=== PATIENT | female | born 1990 | race Hispanic/Latino ===

== ENCOUNTER → 2018-08-24 | Outpatient (CLI) | payer MEDICAID | END | disposition home or self-care (01) | LOC: OIH 09:00 | PROVIDERS: ATTEND Internal Medicine | DX: R91.8 Other nonspecific abnormal finding of lung field (principal) | CPT/HCPCS: 71046 ==

== ENCOUNTER 2021-04-13 15:28 | Observation (INO) | payer BC, MEDICAID ==
[~2021-04-13] VITALS: Ht 154.9 cm; Wt 91.6 kg
[2021-04-13 17:01] VITALS: BP 101/69
== END 2021-04-13 17:16 | disposition home or self-care (01) ==
LOC: LDH 16:10
PROVIDERS: ADMIT Specialist; ATTEND Specialist
DX: O98.513 Other viral diseases complicating pregnancy, third trimester (principal); U07.1 COVID-19; O36.8130 Decreased fetal movements, third trimester, not applicable or unspecified; O99.891 Other specified diseases and conditions complicating pregnancy; M54.9 Dorsalgia, unspecified; Z3A.34 34 weeks gestation of pregnancy; Z98.891 History of uterine scar from previous surgery
CPT/HCPCS: 59025; 76819; G0378

== ENCOUNTER 2021-04-14 16:46 | Emergency (ER) | payer BC, MEDICAID | END 2021-04-14 20:10 | disposition home or self-care (01) | LOC: EDH 16:46 | DX: R06.02 Shortness of breath (principal); Z53.21 Procedure and treatment not carried out due to patient leaving prior to being seen by health care provider ==

== ENCOUNTER 2021-05-01 20:23 | Observation (INO) | payer BC, MEDICAID ==
[~2021-05-01] VITALS: Ht 157.5 cm; Wt 93.0 kg
[2021-05-01 20:25] VITALS: BP 122/69
[2021-05-01 21:22] LABS: APPEARANCE,URINE Clear (CLEAR); BILIRUBIN,URINE Negative (NEGATIVE); COLOR,URINE Yellow (YELLOW); GLUCOSE, URINE (UA) Negative (NEGATIVE); KETONES,URINE Trace mg/dL (NEGATIVE); LEUKOCYTE ESTERASE ,URINE Trace (NEGATIVE); NITRATE,URINE Negative (NEGATIVE); OCCULT BLOOD,URINE Negative (NEGATIVE); PH,URINE 6.5 (5.0-8.0); PROTEIN,URINE Negative (NEGATIVE)
[2021-05-01 21:33] LABS: BACTERIA,URINE None Seen /HPF (None Seen); MUCUS,URINE Few LPF (None Seen); RBC,URINE 0-1 /HPF (0-1); SQUAMOUS EPITHELIAL CELL,UR Few /HPF (0-2); WBC,URINE 0-1 /HPF (0-1)
[2021-05-01] MEDS ORDERED: MEPERIDINE-PF 50 MG/ML SYG ONE (21:47)
[2021-05-01] MEDS ORDERED: PROMETHAZINE HCL 25 MG/ML 1ML AMPULE IM PRN (22:00)
[2021-05-01] MEDS ORDERED: GUAIFENESIN-DM 200/20 MG 10 ML PO ONE (22:00)
[2021-05-01] MEDS ORDERED: MEPERIDINE-PF 50 MG/ML SYG IM ONE (22:00)
[2021-05-01] MEDS ORDERED: BENZONATATE 100 MG CAPSULE PO SCH (22:00)
[2021-05-12] MEDS ORDERED: AEC81 PO (19:37)
[2021-05-12] MEDS ORDERED: PREN-64 PO (19:37)
== END 2021-05-02 00:35 | disposition home or self-care (01) ==
LOC: EDH 20:23 → LDH 20:24
PROVIDERS: ADMIT Specialist; ATTEND Specialist
DX: O99.891 Other specified diseases and conditions complicating pregnancy (principal); O26.893 Other specified pregnancy related conditions, third trimester; Z20.822 Contact with and (suspected) exposure to COVID-19; M54.9 Dorsalgia, unspecified; N89.8 Other specified noninflammatory disorders of vagina; R10.9 Unspecified abdominal pain; R05 Cough; Z3A.37 37 weeks gestation of pregnancy
CPT/HCPCS: 59025 ×2; 81001; 87635; 96372; G0378 ×4; G0379; J2175